=== PATIENT | female | born 1985 | race African-American/Black ===

== ENCOUNTER 2017-09-30 15:40 | Emergency (ER) | payer OTHER ==
[~2017-09-30] VITALS: Ht 154.9 cm; Wt 67.1 kg
[~2017-09-30 15:40] MED LIST: AMOXICILLIN 50500 M1 PO; FLEXERIL PO; IBUPROFEN 600600 M1 PO; MACROBID 100 M100 M1 PO; MEDROLDOSEPACK PO; METROGEL-VAGINA70 GM VG; NOHOMEMEDICATIONS; NORCO 5-325 TA1 EACH PO; PREDNISONE 20 M20 M1 PO; PROVENTIL HFA6.7 G1 INH; TIZANIDINE HCL4 MG PO; ZPAK PO
[2017-09-30 15:44] VITALS: BP 104/69
[2017-09-30] MEDS ORDERED: NORCO 5-325 TA1 EACH PO (16:19)
[2017-09-30] MEDS ORDERED: MOBIC15 MG PO (16:19)
== END 2017-09-30 17:07 | disposition home or self-care (01) ==
LOC: ER 15:40
DX: S29.012A Strain of muscle and tendon of back wall of thorax, initial encounter (principal); J45.909 Unspecified asthma, uncomplicated; X58.XXXA Exposure to other specified factors, initial encounter; Y93.89 Activity, other specified; Y92.89 Other specified places as the place of occurrence of the external cause; Y99.8 Other external cause status

== ENCOUNTER 2018-11-06 09:15 | Emergency (ER) | payer OTHER ==
[~2018-11-06] VITALS: Ht 154.9 cm; Wt 70.3 kg
[~2018-11-06 09:15] MED LIST changes: +MOBIC15 MG PO
[2018-11-06] MEDS ORDERED: YAZ 28 TABLET1 EACH PO (09:19)
[2018-11-06 09:38] LABS: URINE BILIRUBIN NEGATIVE (Negative); URINE BLOOD 3+ (Negative); URINE CLARITY CLEAR; URINE COLOR YELLOW; URINE GLUCOSE-RANDOM* NEGATIVE (Negative); URINE KETONES NEGATIVE (Negative); URINE LEUKOCYTES-REFLEX NEGATIVE (Negative); URINE NITRITE-REFLEX NEGATIVE (Negative); URINE PROTEIN (DIPSTICK) TRACE (Negative); URINE SPECIFIC GRAVITY >= 1.030 (1.005-1.035)
[2018-11-06] MEDS ORDERED: FLEXERIL PO (09:48)
[2018-11-06 09:56] LABS: SQUAMOUS 0-3 Few /LPF (0-3)
[2018-11-06 09:57] LABS: BACTERIA-REFLEX 1-9 Few /HPF (None Seen); CASTS None Seen /LPF (None Seen); CRYSTALS None Seen /LPF (None Seen); MUCUS 4-6 Moderate strn/LPF (None Seen); URINE WBC-REFLEX None Seen /HPF (0-5)
[2018-11-06 10:05] VITALS: BP 122/62
== END 2018-11-06 10:02 | disposition home or self-care (01) ==
LOC: ER 09:15
PROVIDERS: Emergency Medicine
DX: M54.5 Low back pain (principal); J45.909 Unspecified asthma, uncomplicated